=== PATIENT | male | born 1960 | race African-American/Black ===

== ENCOUNTER 2017-08-07 18:43 | Inpatient (IN) | payer BC ==
[~2017-08-07] VITALS: Ht 170.2 cm; Wt 137.2 kg
[~2017-08-07 18:43] MED LIST: ADULT LOW DOSE81 M1 PO; AMERICAINE TP; AMOXIL500 M PO; ANTIHYPERTENSIVE; ASPIRIN81 MG PO; AUGMENTIN 875-11 TAB PO; AVELOX400 MG; BP PILL; BYSTOLIC10 M1 PO; CIALIS2.5 MG PO; CIPRO500 MG PO; COATED ASPIRIN325 M1 PO; COATED ASPIRIN325 MG; COLACE100 MG PO; COREG CR20 MG; CRESTOR10 MG; CYCLOBENZAPRINE10 M1 PO; DIET PILL PO; FLEXERIL10 MG PO; FLOMAX0.4 MG PO; HYDROCODONE; HYZAAR 100-12.51 TAB; IRON325 M3 PO; LOPRESSOR50 MG; LOVASTATIN20 M2 PO; LOVASTATIN20 MG; Lovastatin; METOPROLOL PO; MULTIVITAMIN1 TAB PO; NEXIUM40 MG PO; NORCO 5/325 TAB1 TAB PO; NORCO 5/3251 TAB PO; PEN-VEE K500 MG PO; PERCOCET 5/3251 TAB PO; PERCOCET 5MG/AP1 TA1 PO; PHENERGAN25 MG PO; PROTONIX40 MG PO; RANITIDINE HCL300 MG; STATIN; TRIAMTERENE/HCT1 CAP; TYLENOL325 MG PO; Triamterene/Hctz PO; ZANTAC150 MG PO; ZITHROMAX250MG Z-PAK PO; ZOFRAN ODT4 MG/UDTAB; ZOFRAN ODT4 MG/UDTAB PO; [UNRECOGNIZED DRUG - OTHER] PO; [UNRECOGNIZED DRUG - REMARK] PO
[2017-08-07 19:43] LABS: BASO % 0.1 % (0-2); EOS % 1.3 % (0-7); EOSINOPHIL ABSOLUTE COUNT 0.1 tho/cmm (0.0-0.7); HCT-HEMATOCRIT 33.5 % (36.0-53.5); IMMATURE GRANULOCYTES ABSOLUTE 0.03 tho/cmm (0-0.03); IMMATURE GRANULOCYTES PERCENT 0.4 % (0-0.3); LYMPH % 32.5 % (20-45); LYMPH ABSOLUTE COUNT 2.7 tho/cmm (0.8-4.5); MCH (MEAN CORPUSCULAR HGB) 24.9 pg (28.0-32.0); MCHC MEAN CORPUSCULAR HGB CONC 32.8 % (32.0-36.0); MCV (MEAN CELL VOLUME) 75.8 fl (82.0-96.0); MEAN PLATELET VOLUME 10.7 cmc (9.4-12.4); MONO % 6.2 % (0-12); MONOCYTE ABSOLUTE COUNT 0.5 tho/cmm (0.0-1.2); NEUTROPHILS % 59.5 % (40-80); PLATELET COUNT 205 tho/cmm (150-450); RED BLOOD COUNT 4.42 mil/cmm (4.40-5.70); RED CELL DISTRIBUTION WIDTH 17.1 % (12.4-16.4); WHITE BLOOD COUNT 8.4 tho/cmm (4.0-10.0)
[2017-08-07 19:50] LABS: INR 1.1 INR (0.9-1.1); PROTHROMBIN TIME 13.5 SECONDS (9.0-13.6)
[2017-08-07 19:59] LABS: ANION GAP 10 mmol/L (0-20); BLOOD UREA NITROGEN 39 mg/dl (6-24); CALCIUM 7.9 mg/dl (8.5-10.5); CARBON DIOXIDE-VENOUS 29 mmol/L (22-32); CHLORIDE 104 mmol/l (96-110); CREATININE 1.09 mg/dl (0.60-1.30); GLUCOSE 83 mg/dL (70-110); POTASSIUM 3.7 mmol/L (3.7-5.1); SODIUM 139 mmol/L (135-145); eGFR VALUE FOR BLACK 89 mL/Min
[2017-08-07 20:18] LABS: URINE BILIRUBIN NEGATIVE (NEG); URINE BLOOD NEGATIVE (NEG); URINE GLUCOSE (UA) NEGATIVE (NEG); URINE KETONE NEGATIVE (NEG); URINE LEUKOCYTE ESTERASE NEGATIVE (NEG); URINE NITRITE NEGATIVE (NEG); URINE PROTEIN NEGATIVE (NEG)
[2017-08-07 20:20] LABS: URINE APPEARANCE CLEAR; URINE COLOR YELLOW
[2017-08-07] MEDS ORDERED: CIPRO500 M2 PO (20:50)
[2017-08-07] MEDS ORDERED: CATAPRES0.1 M1 PO (20:51)
[2017-08-07] MEDS ORDERED: CIALIS5 M1 PO (20:51)
[2017-08-07] MEDS ORDERED: MAXZIDE 75 MG-501 EA PO (20:52)
[2017-08-07] MEDS ORDERED: PHENTERMINE H37.5 M1 PO (20:52)
[2017-08-07] MEDS ORDERED: ASPIRIN81 M1 PO (20:55)
[2017-08-07] MEDS ORDERED: MULTIVITAMINS1 EAC6 PO (20:56)
[2017-08-08 00:31] LABS: ALB/GLOB RATIO 1.1 (0.8-2.0); ALKALINE PHOSPHATASE 48 U/L (33-138); ALT/SGPT 26 U/L (12-78); ANION GAP 7 mmol/L (0-20); AST/SGOT 16 U/L (10-40); BILIRUBIN,TOTAL 0.2 mg/dl (0.0-1.5); BLOOD UREA NITROGEN 38 mg/dl (6-24); CALCIUM 7.8 mg/dl (8.5-10.5); CARBON DIOXIDE-VENOUS 28 mmol/L (22-32); CHLORIDE 107 mmol/l (96-110); CREATININE 1.03 mg/dl (0.60-1.30); GLUCOSE 97 mg/dL (70-110); POTASSIUM 3.4 mmol/L (3.7-5.1); SODIUM 139 mmol/L (135-145); eGFR VALUE FOR BLACK >90 mL/Min
[2017-08-08 04:12] LABS: BASO % 0.3 % (0-2); EOS % 1.8 % (0-7); EOSINOPHIL ABSOLUTE COUNT 0.1 tho/cmm (0.0-0.7); HCT-HEMATOCRIT 28.8 % (36.0-53.5); HGB-HEMOGLOBIN 9.4 gm/dl (13.5-17.0); IMMATURE GRANULOCYTES ABSOLUTE 0.02 tho/cmm (0-0.03); IMMATURE GRANULOCYTES PERCENT 0.3 % (0-0.3); LYMPH % 39.3 % (20-45); LYMPH ABSOLUTE COUNT 3.1 tho/cmm (0.8-4.5); MCH (MEAN CORPUSCULAR HGB) 24.8 pg (28.0-32.0); MCHC MEAN CORPUSCULAR HGB CONC 32.6 % (32.0-36.0); MEAN PLATELET VOLUME 10.1 cmc (9.4-12.4); MONO % 5.8 % (0-12); MONOCYTE ABSOLUTE COUNT 0.5 tho/cmm (0.0-1.2); NEUTROPHIL ABSOLUTE COUNT 4.1 tho/cmm (1.6-8.0); NEUTROPHIL-AUTOMATED 4.1 tho/cmm (1.6-8.0); NEUTROPHILS % 52.5 % (40-80); PLATELET COUNT 169 tho/cmm (150-450); RED BLOOD COUNT 3.79 mil/cmm (4.40-5.70); RED CELL DISTRIBUTION WIDTH 17.2 % (12.4-16.4); WHITE BLOOD COUNT 7.8 tho/cmm (4.0-10.0)
[2017-08-08 04:25] LABS: ANION GAP 13 mmol/L (0-20); BLOOD UREA NITROGEN 33 mg/dl (6-24); CALCIUM 7.8 mg/dl (8.5-10.5); CARBON DIOXIDE-VENOUS 25 mmol/L (22-32); CHLORIDE 109 mmol/l (96-110); GLUCOSE 92 mg/dL (70-110); POTASSIUM 3.5 mmol/L (3.7-5.1); SODIUM 143 mmol/L (135-145); eGFR VALUE FOR BLACK >90 mL/Min
[2017-08-08] MEDS ORDERED: OMEPRAZOLE40 M2 PO (14:45)
--- NOTE | 2017-08-08 16:30 | NUR ---
VIRTUAL CARE NOTE: PT RESTING ON CHAIR READY FOR DISCHARGE INSTRUCTIONS. INFORMATION GIVEN TO PT, PT REQUESTS [facility] TO BE CALLED IN TO HIS [facility] [address] RX WAS CALLED IN PER REQUESTS. PT DENIES ANY NEEDS OR CONCERNS. INFORMED FLOOR NURSE DISCHARGE TEACHING DONE.
== END 2017-08-08 16:50 | DRG 378 ==
LOC: EDMED 18:43 → EMR2 23:00 → 5WD 23:00
PROVIDERS: Emergency Medicine; ADMIT Hospitalist
PROC: 0W3P8ZZ Control Bleeding in Gastrointestinal Tract, Via Natural or Artificial Opening Endoscopic (ICD-10-PCS; principal; 2017-08-08)
PROC: 5A09357 Assistance with Respiratory Ventilation, Less than 24 Consecutive Hours, Continuous Positive Airway Pressure (ICD-10-PCS; 2017-08-08)
DX: K25.4 Chronic or unspecified gastric ulcer with hemorrhage (principal); N39.0 Urinary tract infection, site not specified; Z68.42 Body mass index [BMI] 45.0-49.9, adult; I10 Essential (primary) hypertension; D62 Acute posthemorrhagic anemia; E83.51 Hypocalcemia; E78.5 Hyperlipidemia, unspecified; J45.909 Unspecified asthma, uncomplicated; Z91.19 Patient's noncompliance with other medical treatment and regimen; K21.9 Gastro-esophageal reflux disease without esophagitis; N52.9 Male erectile dysfunction, unspecified; Z79.82 Long term (current) use of aspirin; E66.01 Morbid (severe) obesity due to excess calories
CPT/HCPCS: C9113; J7030